=== PATIENT | female | born 1990 | race Caucasian/White ===

== ENCOUNTER 2021-01-24 02:12 | Emergency (ER) | payer OTHER, SELFPAY ==
--- NOTE | ~2021-01-24 | XR_ITS ---
EXAMINATION: XR chest 1V portable DATE: 01/24/2021 05:56 INDICATION: Left-sided chest pain and tingling in the arms TECHNIQUE: frontal view of the chest was obtained. COMPARISON: None FINDINGS: The lungs are clear with no focal airspace opacities, pulmonary edema, pleural effusion or pneumothor ax. The cardiomediastinal silhouette is normal. Visualized bones and soft tissues are unremarkable. IMPRESSION: 1. Normal chest radiograph. Reviewed, dictated and finalized at location A. IMPRESSION: 1. Normal chest radiograph.
[2021-01-24 02:16] VITALS: BP 128/98; PULSE 76; RESP 18; TEMP 36.4; O2SAT 100
[2021-01-24 03:00] VITALS: PULSE 76
[2021-01-24 03:05] VITALS: BP 131/101; PULSE 82; RESP 12; O2SAT 100
[2021-01-24 04:13] VITALS: BP 119/87; PULSE 74; RESP 16; O2SAT 100
--- NOTE | 2021-01-24 05:38 | ECG_ITS ---
Measurements Intervals [place] Rate: 82 P: 53 AR: 91 QRS: -5 QRSD: 98 T: 5 QT: 398 QTc: 465 Interpretive Statements SINUS RHYTHM WITH SHORT AR INTERVAL DELAYED PRECORDIAL R/S TRANSITION BORDERLINE T WAVE ABNORMALITY- ANT/INF LEADS BASELINE ARTIFACT- II, III, AVR, AVF, V1, V3-V6 BORDERLINE ECG Electronically Signed On 01-24-2021 8:51:56 CDT by Jayro Pepper D.O.
[2021-01-24 05:43] VITALS: BP 131/97; PULSE 71; RESP 16; O2SAT 97
[2021-01-24 05:59] LABS: Basophils Percent Auto 0.7 % (0.2-1.2); Eosinophils Absolute Auto 0.4 K/mm3 (0-0.3); Eosinophils Percent Auto 6.7 % (0-4.4); Hematocrit 38.4 % (37.0-47.0); Hemoglobin 12.4 g/dL (12.0-15.0); Immature Granulocyte Absolute 0.01 K/mm3 (0.00-0.031); Immature Granulocyte Percent A 0.2 % (0-0.5); Lymphocytes Absolute Auto 2.64 K/mm3 (0.9-3.2); Lymphocytes Percent Auto 43.1 % (18.3-44.2); Mean Corpuscular HGB Conc 32.3 g/dl (32-36); Mean Corpuscular Hemoglobin 30.1 pg (26-34); Mean Corpuscular Volume 93.2 fl (80-100); Mean Platelet Volume 9.5 fl (7.4-10.4); Monocytes Absolute Auto 0.4 K/mm3 (0.1-0.6); Monocytes Percent Auto 6.4 % (2.6-8.5); Neutrophils Absolute Auto 2.6 K/mm3 (1.3-6.7); Neutrophils Percent Auto 42.9 % (45.5-73.1); Platelet Count Result 266 k/mm3 (150-375); Red Blood Count 4.12 M/mm3 (4.2-5.4); Red Cell Distribution Width 11.6 % (11.5-14.5); White Blood Count 6.1 K/mm3 (4.5-10.0)
--- NOTE | 2021-01-24 06:02 | ED.GENADULT ---
HPI - General Adult General Chief complaint: Unspecified Stated complaint: elevated HR/BP-anxious Time Seen by Provider: 01/24/21 05:38 Source: patient Mode of arrival: ambulatory Limitations: no limitations History of Present Illness HPI narrative: Patient is 30 years old white female presents with palpitation, shortness of breath, diaphoresis, tingling numbness to face, arms, spasm of the fingers with nausea off and on for the last few days. Patient been feeling weird and anxious. 9 weeks , had a baby 28 weeks been hospitalized since delivery. Patient was started on BuSpar recently Related Data Allergies Allergy/AdvReac Type Severity Reaction Status Date / Time No Known Allergies Allergy Verified 01/24/21 02:13 Review of Systems Review of Systems: Narrative: CONSTITUTIONAL: Denies fever, chills, or sweats. EYES: Denies visual changes, redness, or discharge. ENT: Denies rhinorrhea, congestion, sore throat, or otalgia. CARDIOVASCULAR: Denies chest pain, palpitations, or edema. RESPIRATORY: Denies cough or dyspnea. GASTROINTESTINAL: Denies abdominal pain, nausea, vomiting, or diarrhea. GENITOURINARY: Denies dysuria or hematuria. SKIN: Denies rash or itching. MUSCULOSKELETAL: Denies back pain, joint pain, or myalgia. NEUROLOGIC: Denies headache, numbness, or weakness. PSYCHIATRIC: Denies anxiety or depression. PMFSH Family History Family History Grandparent Family history of malignant neoplasm of breast Social History Social History Smoking status: Light tobacco smoker Alcohol intake: current Exam Narrative: Exam Narrative: General appearance: Well-developed, well-nourished Skin: Normal color Head: Normocephalic, nontraumatic Eyes: Clear conjunctiva ENT: Oropharynx normal, ears normal, nose normal Neck: Supple, nontender Chest and respiratory: Airway patent, no respiratory distress, no accessory muscle use Heart: Regular rate/rhythm Abdomen: Soft, nontender, no organomegaly, quiet bowel sounds Vascular: Normal peripheral pulses, normal capillary refill. 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 Labs, chest x-ray, EKG ordered. Further plan to follow Vital Signs Vital Signs: Vital Signs Temperature 36.4 C 01/24/21 02:16 Pulse Rate 76 01/24/21 02:16 Respiratory Rate 18 01/24/21 02:16 Blood Pressure 128/98 H 01/24/21 02:16 Pulse Oximetry 100 01/24/21 02:16 Temperature 36.4 C 01/24/21 02:16 Pulse Rate 71 01/24/21 05:43 Respiratory Rate 16 01/24/21 05:43 Blood Pressure 131/97 H 01/24/21 05:43 Pulse Oximetry 97 01/24/21 05:43 Lab Data Result diagrams: 01/24/21 05:49 01/24/21 05:49 Labs: Lab Results 01/24/21 01/24/21 Range/Units 05:49 05:49 WBC 6.1 (4.5-10.0) K/mm3 RBC 4.12 L (4.2-5.4) M/mm3 Hgb 12.4 (12.0-15.0) g/dL Hct 38.4 (37.0-47.0) % MCV 93.2 (80-100
[2021-01-24 06:08] LABS: Alanine Aminotransferase 41 U/L (4-35); Alkaline Phosphatase 56 U/L (38-126); Anion Gap 9 mmol/L (8-16); Aspartate Amino Transferase 33 U/L (14-36); Bilirubin,Total 0.5 mg/dL (0.2-1.3); Blood Urea Nitrogen 10 mg/dL (7-17); Calcium 9.4 mg/dL (8.4-10.2); Carbon Dioxide 25 mmol/L (22-30); Chloride 107 mmol/L (98-107); Estimated CRCL calculation 88 ml/min; Estimated Glomerular Filt Rate > 60; Glucose 95 mg/dL (65-105); Potassium 4.1 mmol/L (3.4-5.0); Sodium 141 mmol/L (137-145)
[2021-01-24] MEDS: hydrOXYzine pamoate 25 MG CAPSULE 50 MG PO (06:33)
[2021-01-24 06:37] VITALS: BP 130/97; PULSE 73; RESP 19; O2SAT 100
== END 2021-01-24 06:37 | disposition home or self-care (01) ==
PROVIDERS: Emergency Provider Emergency Medicine; PCP Emergency Medicine
DX: F41.9 Anxiety disorder, unspecified (principal); F17.200 Nicotine dependence, unspecified, uncomplicated; R94.31 Abnormal electrocardiogram [ECG] [EKG]
CPT/HCPCS: 36415; 71045; 80053; 85025; 93005; 99283; A9270

== ENCOUNTER → 2021-02-06 07:43 | Outpatient (CLI) | payer OTHER, SELFPAY ==
--- NOTE | ~2021-02-06 | US_ITS ---
US abdomen complete EXAMINATION: US Abdomen Complete INDICATION: Upper disease PROCEDURE: Realtime High Resolution abdomen ultrasound. COMPARISON: No prior studies for comparison FINDINGS: Gallbladder within normal limits. No gallstones, pericholecystic fluid, gallbladder wall t hickening or biliary dilatation. Common bile duct measures 4 mm. Liver echotexture within normal limits without focal mass. Pancreas within normal limits. Pancreati c tail is obscured by bowel gas. Spleen is unremarkeable. Renal echotexture is within normal limits bilaterally without hydronephrosis, contour deforming mass or renal stone. Right kidney measures 10.2 cm. Left kidney measures 10.6 cm. Visualized aspects of the aorta and IVC are within normal limits. Portal vein is patent. No sonograph ic Montelongo's sign indicated by the technologist. IMPRESSION: 1: Normal abdominal ultrasound. Reviewed, dictated and finalized at location A.
== END ==
PROVIDERS: PCP Emergency Medicine; Visit Provider Emergency Medicine
DX: K76.9 Liver disease, unspecified (principal)
CPT/HCPCS: 76700

== ENCOUNTER → 2021-03-05 12:12 | Outpatient (CLI) | payer OTHER, SELFPAY ==
--- NOTE | ~2021-03-05 | US_ITS ---
EXAMINATION: US thyroid DATE: 03/05/2021 12:28 INDICATION: Thyromegaly. TECHNIQUE: Multiple ultrasound images of the thyroid were obtained. COMPARISON: None. FINDINGS: The right thyroid lobe measures 5.9 x 1.7 x 1.5 cm. The left thyroid lobe measures 5.0 x 1.1 x 1.4 c m. There is normal echotexture and echogenicity throughout the thyroid gland. No discrete nodules id entified. Normal vascular flow is present. IMPRESSION: 1. Normal thyroid. Reviewed, dictated and finalized at location A. IMPRESSION: 1. Normal thyroid.
== END ==
PROVIDERS: PCP Emergency Medicine; Visit Provider Emergency Medicine
DX: E01.0 Iodine-deficiency related diffuse (endemic) goiter (principal)
CPT/HCPCS: 76536

== ENCOUNTER 2021-03-30 10:18 | Emergency (ER) | payer OTHER, SELFPAY ==
[2021-03-30 10:52] VITALS: BP 140/97; PULSE 86; RESP 14; TEMP 36.8; O2SAT 99
--- NOTE | 2021-03-30 11:02 | ED.SKABFB ---
HPI - Skin/Abscess/Foreign Bdy General Chief complaint: Skin/Abscess/Foreign Body Stated complaint: rash Time Seen by Provider: 03/30/21 10:24 Source: patient Mode of arrival: ambulatory Limitations: no limitations History of Present Illness HPI narrative: This is a 30 year old female that presents to the ER for rash noted over the last 2 weeks. Reports an area of redness to the left arm. Reports she has been treated with a steroid cream without improvement. Reports she is on day 5 of Doxycycline with mild improvement. She called back to the virtual doctor today and was prompted to come to the ER. Reports myalgia in the left arm. Denies fever, itching, swelling, discharge, or numbness. Related Data Allergies Allergy/AdvReac Type Severity Reaction Status Date / Time No Known Allergies Allergy Verified 01/24/21 02:13 Review of Systems Review of Systems: CONSTITUTIONAL: Denies fever SKIN: Reports rash. Denies itching. MUSCULOSKELETAL: Reports myalgia. NEUROLOGIC: Denies numbness, or weakness. All systems reviewed & are unremarkable except as noted in HPI and below PMFSH Surgical History Surgical History (Updated 03/30/21 @ 11:05 by Rafaela Gudino PA-C) History of Family History Family History Grandparent Family history of malignant neoplasm of breast Social History Social History Smoking status: Light tobacco smoker Alcohol intake: current Exam Narrative: GENERAL: Well-appearing, well-nourished, and in no acute distress. HEAD: Normocephalic, atraumatic. EYES: EOMI. EXTREMITIES: Normal range of motion. No edema. Normal radial pulses SKIN: Warm, dry. Left upper arm with 4 cm area of mild redness. No lymphangitic streaking. NEURO: No focal deficits. Alert and oriented x3. PSYCH: Normal mood and affect Course Vital Signs Vital signs: Vital Signs Temperature 98.3 F 03/30/21 10:52 Pulse Rate 86 03/30/21 10:52 Respiratory Rate 14 03/30/21 10:52 Blood Pressure 140/97 H 03/30/21 10:52 Pulse Oximetry 99 03/30/21 10:52 Temperature 98.3 F 03/30/21 10:52 Pulse Rate 86 03/30/21 10:52 Respiratory Rate 14 03/30/21 10:52 Blood Pressure 140/97 H 03/30/21 10:52 Pulse Oximetry 99 03/30/21 10:52 MDM - Skin/Abscess/Foreign Bdy MDM Narrative Medical decision making narrative: Patient presents the emergency department for a rash noted over the last couple of weeks. Small area of redness to the left arm noted. No known injuries. No known contact allergens. She is afebrile and nontoxic-appearing. CBC and metabolic panel without concerning findings. Inflammatory markers are not elevated. D-dimer is not elevated. I did send rickettsial and Lyme antibodies. Patient is already on doxycycline. She was instructed to continue this as prescribed. She is to follow-up with primary care doctor. Was instructed that if rash persists she may need to see a fish cutting machine operator. She was given warnings to return to the ER Lab Data Attestation: I reviewed the patient's lab results. Result diagrams: 03/30/21 11:44 03/30/21 11:44 Labs: Lab Results 03/30/21 03/30/21 03/30/21 Range/Units 11:44 11:44 11:44 WBC 4.9 (4.5-10.0) K/mm3 RBC 4.19 L (4.2-5.4) M/mm3 Hgb 12.8 (12.0-15.0) g/dL Hct 39.4 (37.0-47.0) % MCV 94.0 (80-100) fl MCH 30.5 (26-34) pg MCHC 32.5 (32-36) g/dl RDW 13.0 (11.5-14.5) % Plt Count 276 (150-375) k/mm3 MPV 9.4 (7.4-10.4) fl Immature Gran % (Auto) 0.0 (0-0.5) % Neut % (Auto) 49.8 (45.5-73.1) % Lymph % (Auto) 37.7 (18.3-44.2) % Dickson % (Auto) 8.8 H (2.6-8.5) % Eos % (Auto) 2.9 (0-4.4) % Baso % (Auto) 0.8 (0.2-1.2) % Lymph # (Auto) 1.84 (0.9-3.2) K/mm3 Dickson # (Auto) 0.4 (0.1-0.6) K/mm3 Eos # (Auto) 0.1 (0-0.3) K/mm3 Baso # (Auto) 0.0 (0.0-0.1
[2021-03-30 11:52] LABS: Basophils Percent Auto 0.8 % (0.2-1.2); Eosinophils Absolute Auto 0.1 K/mm3 (0-0.3); Eosinophils Percent Auto 2.9 % (0-4.4); Hematocrit 39.4 % (37.0-47.0); Hemoglobin 12.8 g/dL (12.0-15.0); Lymphocytes Absolute Auto 1.84 K/mm3 (0.9-3.2); Lymphocytes Percent Auto 37.7 % (18.3-44.2); Mean Corpuscular HGB Conc 32.5 g/dl (32-36); Mean Corpuscular Hemoglobin 30.5 pg (26-34); Mean Platelet Volume 9.4 fl (7.4-10.4); Monocytes Absolute Auto 0.4 K/mm3 (0.1-0.6); Monocytes Percent Auto 8.8 % (2.6-8.5); Neutrophils Absolute Auto 2.4 K/mm3 (1.3-6.7); Neutrophils Percent Auto 49.8 % (45.5-73.1); Platelet Count Result 276 k/mm3 (150-375); Red Blood Count 4.19 M/mm3 (4.2-5.4); White Blood Count 4.9 K/mm3 (4.5-10.0)
[2021-03-30 12:00] LABS: INR 0.9; Prothrombin Time 12.5 Seconds (11.1-14.7)
[2021-03-30 12:01] LABS: Partial Thromboplastin Time 30.1 SECONDS (22.3-36.8)
[2021-03-30 12:03] LABS: D Dimer 0.31 ug/mL (<0.48)
[2021-03-30 12:06] LABS: Alanine Aminotransferase 21 U/L (4-35); Albumin Level 4.2 g/dL (3.5-5.1); Alkaline Phosphatase 44 U/L (38-126); Anion Gap 6 mmol/L (8-16); Aspartate Amino Transferase 22 U/L (14-36); Bilirubin,Total 0.7 mg/dL (0.2-1.3); Blood Urea Nitrogen 14 mg/dL (7-17); CRP < 0.5 mg/dL (<1.0); Calcium 9.2 mg/dL (8.4-10.2); Carbon Dioxide 26 mmol/L (22-30); Chloride 106 mmol/L (98-107); Estimated CRCL calculation 88 ml/min; Estimated Glomerular Filt Rate > 60; Glucose 110 mg/dL (65-110); Potassium 4.4 mmol/L (3.4-5.0); Sodium 138 mmol/L (137-145)
[2021-03-30 12:20] LABS: Erythrocyte Sedimentation Rate 13 mm/hr (0-20)
[2021-04-03 13:00] LABS: Lyme Disease Ab (IgM), Blot Negative (Negative); Lyme Disease Ab(IgG), Blot Negative (Negative)
== END 2021-03-30 12:59 | disposition home or self-care (01) ==
PROVIDERS: Physician Assistant; Emergency Provider Emergency Medicine; PCP Emergency Medicine
DX: R21 Rash and other nonspecific skin eruption (principal); F17.210 Nicotine dependence, cigarettes, uncomplicated
CPT/HCPCS: 36415; 80053; 85025; 85380; 85610; 85652; 85730; 86140; 86617; 86757; 99283

== ENCOUNTER 2024-02-11 08:41 | Emergency (ER) | payer BC, SELFPAY ==
[2024-02-11 08:55] VITALS: BP 124/65; PULSE 89; RESP 16; TEMP 36.8; O2SAT 100
--- NOTE | 2024-02-11 09:16 | ED.GENADULT ---
HPI - General Adult General Chief complaint: Eye Problems Stated complaint: meds not working Source: patient Mode of arrival: ambulatory Limitations: no limitations History of Present Illness HPI narrative: Patient presents for evaluation of right eye irritation. Symptom onset yesterday. She reports redness, tearing, sensation of foreign body in the right eye and blurred vision. She did a telemedicine appointment and received a prescription for ofloxacin. She has been using the medication as directed without improvement in her symptoms or after. She does wear contact lenses. No recent sick contacts to her knowledge. Related Data Home Medications Medication Instructions Recorded Confirmed dextroamphetamine-amphetamine 20 20 mg PO DAILY 06/04/21 02/11/24 mg tablet (Adderall) ofloxacin 0.3 % eye drops 1 drp ophthalmic (eye) DIRECTED 02/11/24 02/11/24 Allergies Allergy/AdvReac Type Severity Reaction Status Date / Time No Known Allergies Allergy Verified 02/11/24 08:48 Review of Systems Review of Systems: CONSTITUTIONAL: Denies fever, chills, or sweats. EYES: Reports right eye redness, tearing, sensation of foreign body in the eye ENT: Denies rhinorrhea, congestion, sore throat, or otalgia. CARDIOVASCULAR: Denies chest pain, palpitations, or edema. RESPIRATORY: Denies cough or dyspnea. GASTROINTESTINAL: Denies abdominal pain, nausea, vomiting, or diarrhea. GENITOURINARY: Denies dysuria or hematuria. SKIN: Denies rash or itching. MUSCULOSKELETAL: Denies back pain, joint pain, or myalgia. NEUROLOGIC: Denies headache, numbness, dizziness, or weakness. PSYCHIATRIC: Denies anxiety or depression. [facility] Past Medical History Medical History ADHD Preeclampsia Surgical History Surgical History History of History of colposcopy AMER[place] 1 Hx of breast augmentation Family History Family History Grandparent Family history of malignant neoplasm of breast Social History Social History Smoking status: Former smoker Alcohol intake: current Substance use: never Substance use type: marijuana Other substance usage details: occasional gummies Lack of Transportation: No Lack of Food: Never True Current Housing: I Have Housing Concerned About Future Housing: No Difficulty Paying Gas/Electric Bills: No Difficulty Paying for Meds: No Currently Unemployed: No Education: Master's Degree or Higher Difficulty w/ Childcare or Family Care: No Living arrangements: with family Occupation/Education: occupation 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 HEAD: Normocephalic, atraumatic. EYES: PERRLA and EOMI. right conjunctival injection with tearing. There is an area of dye uptake noted at the 3 o'clock position in the right eye when evaluated with fluorescein and Wood's lamp evaluation. ENT: Nares clear, no rhinorrhea or epistaxis. Mucous membranes moist. Oropharynx without tonsillar hypertrophy exudate or other lesions. Bilateral TMs pearly hoover nonbulging NECK: Supple. No adenopathy or masses. No carotid bruits or JVD CHEST: Clear to auscultation. No respiratory distress. No wheezes rales or rhonchi HEART: Regular rate and rhythm. No murmur heard. Normal peripheral pulses. ABDOMEN: Soft, nontender, nondistended, normal active bowel sounds. EXTREMITIES: Normal range of motion. No edema. SKIN: Warm, dry, no rash. NEURO: No focal deficits. Alert and oriented x3. PSYCH: Normal mood and affect. Course Course E
--- NOTE | 2024-02-11 09:28 | PC.NURSE ---
0925- skye lens inserted into the right eye, and pt tolerating it well at present.
--- NOTE | 2024-02-11 10:32 | PC.NURSE ---
1015- EMS EDUCATOR attempt again to remove foreign body with a new needle, pt tolerating well, but unsuccessful. pt states that [place] Miranda will see her there upon arrival.
--- NOTE | 2024-02-11 10:46 | PC.NURSE ---
0922-MANAGER QA attempting to remove FB from the right eye with cotton swab and needle. pt tolerating extremely well.
== END 2024-02-11 10:33 | disposition home or self-care (01) ==
PROVIDERS: Emergency Provider Nurse Practitioner; PCP Emergency Medicine
DX: T15.91XA Foreign body on external eye, part unspecified, right eye, initial encounter (principal); F90.9 Attention-deficit hyperactivity disorder, unspecified type; F12.90 Cannabis use, unspecified, uncomplicated
CPT/HCPCS: 65205; 99212; A9270; G0463; J7030